=== PATIENT | female | born 1965 ===

== ENCOUNTER 2022-02-09 10:05 | Inpatient (IN) ==
[~2022-02-09 10:05] MED LIST: Buffered Lidocaine 1% SYRIN 1 ml INTRADERM ONE; HYDROcodone/ACETAMIN 5/325 mg TAB PO PRN; Lactated Ringers 1000 ml BAG 1,000 ML IV SCH; Metoclopramide 5 MG/ML VIAL (10 mg) IV PRN; Naloxone 0.4 mg VIAL 0.4 mg/ml 1 ml VIAL IV PRN; Ondansetron 4 mg VIAL 2 MG/ML 2 ml VIAL IV PRN; fentaNYL 100 mcg/2 ml 50 MCG/ML VIAL IV PRN
[2022-02-09] MEDS ORDERED: Lidocaine 2% PF 5 ML VIAL ONE (10:09)
[2022-02-09] MEDS ORDERED: Propofol 10 MG/ML 20 ML BTL ONE ×4 (10:09→15:22)
[2022-02-09] MEDS ORDERED: ceFAZolin 2 GM in NS PREMIX 2 GM/100 ML BAG IVPB ONE (10:49)
[2022-02-09] MEDS ORDERED: fentaNYL 100 mcg/2 ml 50 MCG/ML VIAL ONE (12:01)
[2022-02-09] MEDS ORDERED: ROPIVACAINE 5 MG/ML 30 ML BTL (0.5%) ONE ×2 (12:01→12:13)
[2022-02-09] MEDS ORDERED: Midazolam 2 mg/2 ml VIAL 1 mg/ml 2 ml VIAL (2 mg) ONE ×2 (12:01→12:39)
[2022-02-09] MEDS ORDERED: Dexamethasone IV 4 MG/ML VIAL 1 ml VIAL ONE (12:01)
[2022-02-09] MEDS ORDERED: Ondansetron 4 mg VIAL 2 MG/ML 2 ml VIAL ONE (13:09)
[2022-02-09] MEDS ORDERED: Morphine 2 MG/ML SYRINGE IV PRN (14:26)
[2022-02-09] MEDS ORDERED: Magnesium Hydroxide LIQ 30 ML UDC PO PRN (14:26)
[2022-02-09] MEDS ORDERED: Ondansetron ODT 4 mg TAB 4 MG TAB PO PRN (14:26)
[2022-02-09] MEDS ORDERED: Ondansetron 4 mg VIAL 2 MG/ML 2 ml VIAL IV PRN (14:26)
[2022-02-09] MEDS ORDERED: Lactulose 30 ml UDC PO PRN (14:26)
[2022-02-09] MEDS: Lactated Ringers 1000 ml BAG 1,000 ML IV SCH (18:20)
[2022-02-09] MEDS: ceFAZolin 1 GM ADVAN 1 GM in NS 0.9% 50 ML 50 ML IVPB SCH (21:37)
[2022-02-09] MEDS: Magnesium Hydroxide LIQ 30 ML UDC PO SCH (21:41)
[2022-02-10] MEDS: Lactated Ringers 1000 ml BAG 1,000 ML IV SCH (04:47)
[2022-02-10] MEDS: ceFAZolin 1 GM ADVAN 1 GM in NS 0.9% 50 ML 50 ML IVPB SCH ×2 (04:48→13:11)
[2022-02-10 06:11] LABS: Hematocrit 36 % (35-47); Hemoglobin 11.8 g/dL (12.0-16.0); Mean Platelet Volume 6.9 fL (7.4-10.4); Platelet Count 170 10^3/uL (150-450)
[2022-02-10 06:38] LABS: Calcium 8.5 mg/dL (8.6-10.3); Potassium 4.1 mmol/L (3.5-5.0); eGFR CKD-EPI 103.3 (>60)
[2022-02-10] MEDS: Magnesium Hydroxide LIQ 30 ML UDC PO SCH (08:21)
[2022-02-10] MEDS ORDERED: Vitamin THERAPEUTIC TAB PO SCH (09:00)
[2022-02-10 11:04] VITALS: BP 104/69
== END 2022-02-10 14:00 | disposition home or self-care (01) | DRG 302 ==
LOC: INTOOBSV 10:05 → AA 10:05 → SSU 18:04
PROVIDERS: ADMIT Orthopaedic Surgery Adult Reconstructive Orthopaedic Surgery; ATTEND Orthopaedic Surgery Adult Reconstructive Orthopaedic Surgery

== ENCOUNTER 2022-06-24 07:54 | Inpatient (IN) ==
[~2022-06-24 07:54] MED LIST changes: +Acetaminophen IV 1 GM/100ML 1,000 MG/100 ML BAG IV ONE; +Dexamethasone IV 4 MG/ML VIAL 1 ml VIAL ONE; +Famotidine IV 10 MG/ML 2 ml VIAL (20 mg) IV ONE; -HYDROcodone/ACETAMIN 5/325 mg TAB PO PRN; +Lidocaine 2% PF 5 ML VIAL ONE; -Metoclopramide 5 MG/ML VIAL (10 mg) IV PRN; +Midazolam 5 mg/5 ml VIAL 1 mg/ml 5 ml VIAL (5 mg) ONE; -Naloxone 0.4 mg VIAL 0.4 mg/ml 1 ml VIAL IV PRN; -Ondansetron 4 mg VIAL 2 MG/ML 2 ml VIAL IV PRN; +Ondansetron 4 mg VIAL 2 MG/ML 2 ml VIAL ONE; +Phenylephrine IV 10 MG/ML 1 ml VIAL ONE; -fentaNYL 100 mcg/2 ml 50 MCG/ML VIAL IV PRN; +fentaNYL 100 mcg/2 ml 50 MCG/ML VIAL ONE
[2022-06-24] MEDS ORDERED: ceFAZolin 2 GM PREMIX 2 GM/50 ML BAG ONE (08:31)
[2022-06-24] MEDS ORDERED: Famotidine IV 10 MG/ML 2 ml VIAL (20 mg) ONE (08:31)
[2022-06-24] MEDS ORDERED: ROPIVACAINE 5 MG/ML 30 ML BTL (0.5%) ONE ×2 (09:42→10:40)
[2022-06-24] MEDS ORDERED: Ketamine HCL 50 mg/ml 10 ml VIAL (500 MG) ONE (11:04)
[2022-06-24] MEDS ORDERED: Midazolam 2 mg/2 ml VIAL 1 mg/ml 2 ml VIAL (2 mg) ONE (11:08)
[2022-06-24] MEDS ORDERED: Naloxone 0.4 mg VIAL 0.4 mg/ml 1 ml VIAL IV PRN (11:46)
[2022-06-24] MEDS ORDERED: Ondansetron 4 mg VIAL 2 MG/ML 2 ml VIAL IV PRN ×2 (11:46→13:20)
[2022-06-24] MEDS ORDERED: fentaNYL 100 mcg/2 ml 50 MCG/ML VIAL IV PRN (11:46)
[2022-06-24] MEDS ORDERED: HYDROmorphone 1 MG/1 ML SYRINGE IV PRN (11:46)
[2022-06-24] MEDS ORDERED: Propofol 10 MG/ML 20 ML BTL ONE (11:54)
[2022-06-24] MEDS ORDERED: Ondansetron ODT 4 mg TAB 4 MG TAB PO PRN (13:20)
[2022-06-24] MEDS ORDERED: Lactulose 30 ml UDC PO PRN (13:20)
[2022-06-24] MEDS ORDERED: Morphine 2 MG/ML SYRINGE IV PRN (13:20)
[2022-06-24] MEDS ORDERED: Magnesium Hydroxide LIQ 30 ML UDC PO PRN (13:20)
[2022-06-24] MEDS: Lactated Ringers 1000 ml BAG 1,000 ML IV SCH (14:59)
[2022-06-24] MEDS: Magnesium Hydroxide LIQ 30 ML UDC PO SCH (21:21)
[2022-06-24] MEDS: ceFAZolin 1 GM ADVAN 1 GM in NS 0.9% 50 ML 50 ML IVPB SCH (21:23)
[2022-06-25] MEDS: Lactated Ringers 1000 ml BAG 1,000 ML IV SCH (02:55)
[2022-06-25] MEDS: ceFAZolin 1 GM ADVAN 1 GM in NS 0.9% 50 ML 50 ML IVPB SCH ×2 (04:44→11:41)
[2022-06-25] MEDS: Magnesium Hydroxide LIQ 30 ML UDC PO SCH (08:46)
[2022-06-25] MEDS ORDERED: Vitamin THERAPEUTIC TAB PO SCH (09:00)
[2022-06-25] MEDS ORDERED: Influenza vaccine *QUAD* *2022-23* 0.5 ML SYRINGE IM ONE (09:00)
[2022-06-25 09:07] LABS: Hematocrit 35 % (35-47); Mean Platelet Volume 7.1 fL (7.4-10.4); Platelet Count 228 10^3/uL (150-450)
[2022-06-25 09:40] LABS: Calcium 8.8 mg/dL (8.6-10.3); Potassium 4.8 mmol/L (3.5-5.0)
[2022-06-25 09:46] LABS: Creatinine, Serum 0.7 mg/dL (0.51-0.95); eGFR CKD-EPI 101.4 (>60)
[2022-06-25] MEDS ORDERED: Lactated Ringers 1000 ml BAG 500 ML IV ONE (10:00)
[2022-06-25 11:15] VITALS: BP 102/63
== END 2022-06-25 14:04 | disposition home or self-care (01) | DRG 302 ==
LOC: AA 07:54 → INTOOBSV 07:54 → OBSVTOIN 07:54 → SSU 15:10 → UNDODISOB 15:50
PROVIDERS: ADMIT Orthopaedic Surgery Adult Reconstructive Orthopaedic Surgery; ATTEND Orthopaedic Surgery Adult Reconstructive Orthopaedic Surgery